=== PATIENT | female | born 1945 | race American Indian/Alaskan Native ===

== ENCOUNTER 2017-05-21 09:11 | Inpatient (IN) | payer MEDICARE ==
[2017-05-21 09:26] VITALS: BMI 26.6
[2017-05-21] MEDS ORDERED: Sodium Chloride 0.9% 500 ML IV STA (09:54)
[2017-05-21 11:34] LABS: BASO % 0.9 % (0.0-2.0); EOS % 0.6 % (0.0-4.0); HEMOGLOBIN 13.8 g/dL (11.0-16.0); LYMPH # 0.7 K/uL (1.0-4.3); LYMPH % 16.1 % (20.0-40.0); MEAN CELL VOLUME 92.5 fL (81.0-99.0); MEAN CORPUSCULAR HEMOGLOBIN 31.6 pg (27.0-31.0); MEAN CORPUSCULAR HGB CONC 34.1 g/dL (33.0-37.0); MEAN PLATELET VOLUME 8.4 fL (7.2-11.7); MONO # 0.3 K/uL (0.0-0.8); MONO % 8.2 % (0.0-10.0); NEUT # 3.1 K/uL (1.8-7.0); NEUT % 74.2 % (50.0-75.0); NRBC % 0.1 % (0.0-2.0); RBC 4.36 Mil/uL (3.80-5.20); RED CELL DISTRIBUTION WIDTH 13.6 % (11.5-14.5); WHITE BLOOD COUNT 4.2 K/uL (4.8-10.8)
--- NOTE | 2017-05-21 11:35 | RAD ---
PROCEDURE: CHEST RADIOGRAPH, 1 VIEW HISTORY: Hypoglycemia COMPARISON: None available. FINDINGS: LUNGS: The lungs are clear. There is linear atelectasis/scarring in the left mid lung. No focal consolidation. PLEURA: No pneumothorax or pleural fluid seen. CARDIOVASCULAR: Normal. OSSEOUS STRUCTURES: No significant abnormalities. VISUALIZED UPPER ABDOMEN: Normal. OTHER FINDINGS: None. IMPRESSION: No active pulmonary disease.
[2017-05-21] MEDS ORDERED: Dextrose 50% VIAL Inj (50 ml) IV ONE ×2 (11:49→13:41)
[2017-05-21 11:51] LABS: ALB/GLOB RATIO 0.8 (1.0-2.1); ALBUMIN 3.5 g/dL (3.5-5.0); CALCIUM 7.8 mg/dl (8.6-10.4)
--- NOTE | 2017-05-21 11:52 | C.PDOC ---
History Of Present Illness 71 year old female with PMHx of DM accompanied by her daughter is brought to the ED by EMS after being found unresponsive. As per daughter, patient was recently d/c homes from [facility] for pneumonia, she usually takes glucoride for her diabetes. According to the daughter she last saw the patient yesterday and spoke to her at 18:30 last night and she looked normal. This morning patient's daughter found her unresponsive and called EMS, at that time patient as foaming out of her mouth. Finger stick done by ALS was 28 patient was given D50 and repeated sugar was 303, upon arrival to the ED sugar was repeated and was 168. Patient is currently AOx3. Time Seen by Provider: 05/21/17 09:39 Chief Complaint (Nursing): High Blood Sugar History Per: EMS, Family History/Exam Limitations: clinical condition Onset/Duration Of Symptoms: Hrs Current Symptoms Are (Timing): Gone Current Diabetic Medications: Other (Glucoride) Associated Infectious Symptoms: denies: Cough, Dysuria, Urinary Urgency, Urinary Frequency, Vomiting, Diarrhea Treatment Prior To Provider Evaluation: Accucheck, D50W Given Recent travel outside of the [place]: No Additional History Per: EMS, Family Past Medical History Reviewed: Historical Data, Nursing Documentation, Vital Signs Vital Signs: Last Vital Signs Temp 97.6 F 05/21/17 09:11 Pulse 95 H 05/21/17 14:17 Resp 20 05/21/17 14:17 BP 122/86 05/21/17 14:17 Pulse Ox 100 05/21/17 14:30 - Medical History PMH: Diabetes, HTN, Chronic Kidney Disease Surgical History: Coronary Stent (x2 2000) Family History: States: Unknown Family Hx - Social History Hx Alcohol Use: No Hx Substance Use: No Review Of Systems Constitutional: Negative for: Fever, Chills Cardiovascular: Negative for: Chest Pain, Palpitations Respiratory: Negative for: Cough, Shortness of Breath Gastrointestinal: Negative for: Nausea, Vomiting, Abdominal Pain Genitourinary: Negative for: Dysuria, Hematuria Skin: Negative for: Rash Neurological: Negative for: Weakness, Numbness, Altered Mental Status, Headache , Dizziness Physical Exam - Physical Exam Appears: Non-toxic, No Acute Distress Skin: Normal Color, Warm, Dry Head: Atraumatic, Normacephalic Eye(s): bilateral: Normal Inspection Nose: No Discharge, No Deformity Oral Mucosa: Moist Neck: Normal ROM, Supple Chest: Symmetrical Cardiovascular: Rhythm Regular, No Murmur Respiratory: Normal Breath Sounds, No Rales, No Rhonchi, No Wheezing Gastrointestinal/Abdominal: Soft, No Tenderness, No Guarding, No Rebound Back: Normal Inspection Extremity: Normal ROM, No Pedal Edema, No Calf Tenderness, No Deformity, No Swelling Neurological/Psych: Oriented x3, Normal Speech, Normal Cognition Gait: Steady ED Course And Treatment - Laboratory Results Result Diagrams: 05/21/17 11:29 05/21/17 11:29 O2 Sat by Pulse Oximetry: 100 (On RA) Pulse Ox Interpretation: Normal - Radiology CXR: Viewed By Me, Read By Radiologist CXR Interpretation: Yes: Other (No active pulmonary disease.). No: No Acute Disease, Infiltrates - Other Rad CXR X-Ray: Viewed By Me, Read By Radiologist Interpretation: Accession No. : [id number]. Patient Name / ID : MILE Navarro / [id number]. Exam Date : 05/21/2017 10:03:25 ( Approved ). Study Comment : Sex / Age : F / 71Y. Creator : Angelika Jimenez MD. Dictator : Angelika Jimenez MD. Automated Manufacturing Instructor : Timber Hewer : Angelika Jimenez MD. Approver2 : Report Date : 05/21/2017 11:33:43. My Comment : . PROCEDURE: CHEST RADIOGRAPH, 1 VIEW. HISTORY: Hypoglycemia. COMPARISON: None available. FINDINGS: LUNGS: The lungs are clear. There is linear atelectasis/ scarring in the left mid lung. No focal consolidation. PLEURA: No pneumothorax or pleural fluid seen. CARDIOVASCULAR: Normal. OSSEOUS STRUCTURES: No significant abnormalities. VISUALIZED UPPER ABDOMEN: Normal. OTHER FINDINGS: None. IMPRESSION: No active pulmonary disease. - CT Scan/US Head CT Other Rad Studies (CT/US): Read By Radiologist, Radiology Report Reviewed CT/US Interpretation: Accession No. : [id number]. Patient Name / ID : MILE AKHTAR / [id number]. Exam Date : 05/21/2017 13:58:52 ( Approved ). Study Comment : Sex / Age : F / 71Y. Creator : Sharda Lima. Dictator : Yazmin Huffman MD. Automated Manufacturing Instructor : Timber Hewer : Yazmin Huffman MD. Approver2 : Report Date : 05/21/2017 14:00:15. My Comment : . This report is currently processing and HAS NOT BEEN OFFICIALLY SIGNED BY THE PHYSICIAN - ESTIMATED TIME OF APPROVAL IS 05/21/2017 14:15. PROCEDURE: CT HEAD WITHOUT CONTRAST. HISTORY: AMS. COMPARISON: None available. TECHNIQUE : Axial computed tomography images were obtained through the head/brain without intravenous contrast. Radiation dose: Total exam DLP = 915.95 mGy-cm. This CT exam was performed using one or more of the following dose reduction techniques: Automated exposure control, adjustment of the mA and/or kV according to patient size, and/or use of iterative reconstruction technique. FINDINGS: HEMORRHAGE: No intracranial hemorrhage. BRAIN: Diffuse atrophy with prominence of the ventricles and sulci noted. No mass effect or edema. Intracranial atherosclerosis. Moderate scattered Periventricular and subcortical white matter hypodensities, which are nonspecific, but often seen with chronic microvascular ischemic disease. Please note that MRI with diffusion imaging is more sensitive in the detection of acute ischemic event. VENTRICLES: No hydrocephalus. CALVARIUM: Unremarkable. PARANASAL SINUSES: Small fluid in the left maxillary sinus. Mucosal thickening of the ethmoid air cells. Small mucosal polyp/ retention cyst in the right sphenoid sinus. MASTOID AIR CELLS: Unremarkable as visualized. No inflammatory changes. OTHER FINDINGS: None. IMPRESSION: Generalized atrophy. Moderate nonspecific white matter changes. Small fluid in the left maxillary sinus. Mucosal thickening of the ethmoid air cells. Small mucosal polyp/ retention cyst in the right sphenoid sinus. Progress Note: Plan: -CXR. -Labs. -EKG. -IV fluids. -UA. Spoke with Dr. Major regarding the patient, she will be admitted under his service to Telemetry Disposition - Disposition Disposition: HOSPITALIZED Disposition Time: 14:29 Condition: SERIOUS - Clinical Impression Clinical Impression: Hypoglycemia, Acute on chronic renal insufficiency, Wheezing - PA / FIELD SALES TRAINER / Resident Statement MD/DO has reviewed & agrees with the documentation as recorded. - Scribe Statement The provider has reviewed the documentation as recorded by the Scribe Sravan Roberts All medical record entries made by the Lizbethibstephanie were at my direction and personally dictated by me. I have reviewed the chart and agree that the record accurately reflects my personal performance of the history, physical exam, medical decision making, and the department course for this patient. I have also personally directed, reviewed, and agree with the discharge instructions and disposition.
[2017-05-21] MEDS ORDERED: Dextrose 50% SYRINGE Inj (50 ml) IV STA ×2 (11:56→13:37)
[2017-05-21] MEDS ORDERED: Albuterol 0.083% Inhal Sol (2.5 mg/3 mL) UD INH STA (13:39)
--- NOTE | 2017-05-21 14:11 | CT ---
PROCEDURE: CT HEAD WITHOUT CONTRAST. HISTORY: AMS COMPARISON: None available. TECHNIQUE: Axial computed tomography images were obtained through the head/brain without intravenous contrast. Radiation dose: Total exam DLP = 915.95 mGy-cm. This CT exam was performed using one or more of the following dose reduction techniques: Automated exposure control, adjustment of the mA and/or kV according to patient size, and/or use of iterative reconstruction technique. FINDINGS: HEMORRHAGE: No intracranial hemorrhage. BRAIN: Diffuse atrophy with prominence of the ventricles and sulci noted. No mass effect or edema. Intracranial atherosclerosis. Moderate scattered Periventricular and subcortical white matter hypodensities, which are nonspecific, but often seen with chronic microvascular ischemic disease. Please note that MRI with diffusion imaging is more sensitive in the detection of acute ischemic event. VENTRICLES: No hydrocephalus. CALVARIUM: Unremarkable. PARANASAL SINUSES: Small fluid in the left maxillary sinus. Mucosal thickening of the ethmoid air cells. Small mucosal polyp/ retention cyst in the right sphenoid sinus. MASTOID AIR CELLS: Unremarkable as visualized. No inflammatory changes. OTHER FINDINGS: None. IMPRESSION: Generalized atrophy. Moderate nonspecific white matter changes. Small fluid in the left maxillary sinus. Mucosal thickening of the ethmoid air cells. Small mucosal polyp/ retention cyst in the right sphenoid sinus.
--- NOTE | 2017-05-21 14:54 | CP.PCM.PN ---
Subjective - Date & Time of Evaluation Date of Evaluation: 05/21/17 Time of Evaluation: 14:54 - Subjective Subjective: PGY-[address] Major's service: Pt is a 71 year old female, with PMHx of type two diabetes, CKD, CAD (with stent placement), CHF (Systolic), who presents to [facility] after being found in her home unresponsive. Daughter at bedside relates that patient was found by her, lying on the floor, "foaming at the mouth," diaphoretic, and incontinent of urine. Patient states she remembers taking her pills but does not know what happened after and does not remember falling. EMS was called and patient was found with blood glucose of 28. Pt was given D50 in the field and became awake, alert, and oriented. Daughter states that she last spoke with patient at 1800 last night, and patient was in normal mood/health, with no slurred speech or altered AMS. Daughter states she visits the patient daily and lays out her pills for her. Family and patient deny history of seizure disorder , stroke, previous falls, but admit one previous hypoglycemic episode last year. Daughter states patient was discharged from [facility] in [place] last Saturday for pneumonia. PMHx: type two diabetes, CKD, CAD (with stent placement: Mid LAD, Distal RCA (2016)), CHF (Systolic) PSHx: stent placement: Mid LAD, Distal RCA 07/2016 Allergies: NKA Shx: denies tobacco, alcohol, or drug use Outpt [facility] Dr. Jefferson PMD: Dr. Lopez Objective - Vital Signs/Intake and Output Vital Signs (last 24 hours): Temp Pulse Resp BP Pulse Ox 97.6 F 95 H 20 122/86 100 05/21/17 09:11 05/21/17 14:17 05/21/17 14:17 05/21/17 14:17 05/21/17 14:30 - Medications Medications: Current Medications Dextrose (Dextrose 10% In Water) 1,000 mls @ 75 mls/hr IV .[id number] ONE Stop: 05/22/17 02:19 Last Admin: 05/21/17 14:10 Dose: 75 mls/hr - Labs Labs: 05/21/17 11:29 05/21/17 11:29 - Constitutional Appears: Non-toxic, Older Than Stated Age, Chronically Ill - Head Exam Head Exam: ATRAUMATIC, NORMAL INSPECTION - Eye Exam Eye Exam: EOMI, Normal appearance. absent: Scleral icterus Pupil Exam: PERRL - ENT Exam ENT Exam: Mucous Membranes Moist - Neck Exam Neck Exam: Full ROM - Respiratory Exam Respiratory Exam: Clear to Ausculation Bilateral, NORMAL BREATHING PATTERN. absent: Rales, Rhonchi, Wheezes - Cardiovascular Exam Cardiovascular Exam: REGULAR RHYTHM, +S1, +S2 - GI/Abdominal Exam GI & Abdominal Exam: Soft, Normal Bowel Sounds. absent: Distended, Tenderness - Extremities Exam Extremities Exam: Normal Inspection. absent: Calf Tenderness, Pedal Edema, Tenderness - Back Exam Back Exam: absent: CVA tenderness (L), CVA tenderness (R) - Neurological Exam Neurological Exam: Alert, Awake, Oriented x3. absent: Altered, CN II-XII Intact Neuro motor strength exam: Left Upper Extremity: 3, Right Upper Extremity: 3, Left Lower Extremity: 3, Right Lower Extremity: 3 Additional comments: Slurred speech Aphasia Partial Gaze palsy to right light touch intact globally on all extremities - Psychiatric Exam Psychiatric exam: Normal Affect, Normal Mood - Skin Skin Exam: Dry, Normal Color, Warm Assessment and Plan - Assessment and Plan (Free Text) Plan: AMS/Syncopal episode Admit to telemetry Pt found unresponsive at home, BG 28 - AAOx3 after D50 Last known time normal 1800 on 05/20/17 CT Head (05/21/17): Generalized atrophy. Moderate nonspecific white matter changes. Small fluid in the left maxillary sinus. Mucosal thickening of the ethmoid air cells. Small mucosal polyp/ retention cyst in the right sphenoid sinus (see full report) EKG: NSR, 68 bpm, No Acute T wave/ST changes CXR (05/21/17): NAD Lactic Acid 0.9 Neuro consult: Dr. Jenkins, help appreciated Spoke to Dr. Jenkins as slurred speech, weakness, gaze palsy became worse throughout day - Pt well outside window for tPA - repeat CT Head STAT - f/u Brain MRI in AM, ECHO - f/u RPR, B12, Folate, TSH, Vitamin D Plavix 75mg PO daily Coreg 6.25mg PO BID ASA 325mg PO ONCE f/u UA Hypoglycemia Pt found unresponsive at home, BG 28 - AAOx3 after D50 in field D10 w water given in ED Stop home glyburide Insulin sliding scale coverage for now NS @ 50 cc/hr Hypoglycemia Protocol Monitor with Q4H Accucheck CHF (systolic) NO JVD, Pedal edema, Rales CXR (05/21/2017): NAD Coreg 6.25mg PO BID Hold Entresto/CHACE due to renal function HTN Hydralazine 25mg PO BID Isosorbide Dinitrate 20mg PO BID HOLD home Lasix CAD Stent placement: Mid LAD, Distal RCA (07/2016) Plavix 75mg PO Daily ASA 81mg PO Daily Coreg 6.25mg PO BID Acute on chronic renal failure Cr 3.0 on admission; up from previous admission in 2016 (1.9) Nephro consult: Dr. Enriquez, kalin appreciated - Hold Entresto/Lasix due to renal function - Light hydration NS @ 50cc/hr - f/u random sodium, microalbumin, Renal US Prophylaxis Lovenox 30mg SC Daily (renal dose) Protonix 40mg IV daily SCDs Wesley Coates PGY-2 All medical management per Dr. Major NIHSS Stroke Scale - Date/Time Evaluation Performed Date Performed: 05/21/17 Time Performed: 20:49 When Was NIHSS Performed: Baseline - How Severe is the Stroke Level of Consciousness: 0=Alert LOC to Questions: 0=Both comments correct LOC to commands: 0=Obeys both correctly Best Gaze: 1=Partial gaze palsy Visual: 0=No visual loss Facial: 0=Normal Motor Arm - Left: 0=No drift Motor Arm - Right: 1=Drift noted before 10 sec Motor Leg - Left: 1=Drift before 5 sec Motor Leg - Right: 1=Drift before 5 sec Limb Ataxia: 0=Absent Sensory: 0=Normal Best Language: 1=Mild to moderate aphasia Dysarthia: 1=Mild to moderate slurring Extinction & Inattention (Neglect): 0=Normal, no object Score: 6
[2017-05-21] MEDS ORDERED: Enoxaparin 40 mg Syringe SC SCH (16:15)
[2017-05-21] MEDS ORDERED: Glucagon Recombinant 1 mg Inj IM PRN (19:08)
[2017-05-21] MEDS ORDERED: Dextrose 50% SYRINGE Inj (50 ml) IV PRN (19:08)
[2017-05-21] MEDS ORDERED: Sodium Chloride 0.9% 1,000 ML IV SCH ×2 (19:15→20:45)
--- NOTE | 2017-05-21 21:25 | CT ---
EXAM: CT Head Without Intravenous Contrast EXAM DATE/TIME: Exam ordered 05/21/2017 7:45 PM CLINICAL HISTORY: 71 years old, female; Signs and symptoms; Speech disturbance; Slurred speech; Additional info: Worsening aphasia, slurred speech TECHNIQUE: Axial computed tomography images of the head/brain without intravenous contrast. All CT scans at this facility use one or more dose reduction techniques, viz.: automated exposure control; ma/kV adjustment per patient size (including targeted exams where dose is matched to indication; i.e. head); or iterative reconstruction technique. COMPARISON: No relevant prior studies available. FINDINGS: Brain: Low density is noted in the periventricular white matter extending into the griffin radiata and centrum semiovale bilaterally. Basal ganglia calcifications are seen bilaterally. A 6 mm area of low density is noted within the white matter of the left insula. No hemorrhage. Ventricles: Unremarkable. No ventriculomegaly. Bones/joints: Unremarkable. No acute fracture. Soft tissues: Unremarkable. Sinuses: A small air-fluid level is seen in left maxillary sinus. No no excessive thickening is seen in the right sphenoid sinus. Coastal thickening is seen of the ethmoid sinuses bilaterally. Mastoid air cells: Unremarkable as visualized. No mastoid effusion. IMPRESSION: 1. 6 mm area of low density within the left insula could represent an acute/subacute infarct. MRI with diffusion weighted imaging might be helpful. 2. Moderate microvascular ischemic change and deep white matter
[2017-05-21 23:57] LABS: CK-MB 0.81 ng/mL (0.0-3.38); TROPONIN I 0.053 ng/mL (0.00-0.120)
[2017-05-22 06:29] LABS: SQUAMOUS EPITHIAL 2 /hpf (0-5); URINE BACTERIA RARE (<OCC); URINE BILIRUBIN NEGATIVE (NEGATIVE); URINE BLOOD 1+ (NEGATIVE); URINE CLARITY Clear (Clear); URINE COLOR Yellow (YELLOW); URINE GLUCOSE (UA) 2+ mg/dL (Normal); URINE LEUKOCYTE ESTERASE NEG Leu/uL (Negative); URINE NITRATE NEGATIVE (NEGATIVE); URINE PROTEIN 3+ mg/dL (NEGATIVE); URINE UROBILINOGEN NORMAL mg/dL (0.2-1.0)
[2017-05-22 07:51] LABS: RBC 3.68 Mil/uL (3.80-5.20)
[2017-05-22 07:52] LABS: MEAN CELL VOLUME 93.9 fL (81.0-99.0); MEAN CORPUSCULAR HEMOGLOBIN 31.5 pg (27.0-31.0); MEAN CORPUSCULAR HGB CONC 33.5 g/dL (33.0-37.0); MEAN PLATELET VOLUME 8.9 fL (7.2-11.7); RED CELL DISTRIBUTION WIDTH 13.6 % (11.5-14.5)
[2017-05-22 07:53] LABS: HEMOGLOBIN 11.6 g/dL (11.0-16.0)
[2017-05-22 08:25] LABS: ALB/GLOB RATIO 0.8 (1.0-2.1); CALCIUM 7.4 mg/dl (8.6-10.4)
[2017-05-22 08:59] LABS: FOLATE 9.8 ng/mL
[2017-05-22] MEDS: Enoxaparin 30 mg Syringe SC SCH (09:10)
--- NOTE | 2017-05-22 09:12 | US ---
PROCEDURE: Ultrasound of the Kidneys HISTORY: JAYME COMPARISON: None available. TECHNIQUE: Grayscale imaging was performed. FINDINGS: RIGHT KIDNEY: Measures: 8.7 cm. Normal in size, contour with diffuse increased cortical echogenicity. No stone, solid mass lesion or hydronephrosis visualized. LEFT KIDNEY: Measures: 8.3 cm. Normal in size, contour with diffuse increased cortical echogenicity. No stone, solid mass lesion or hydronephrosis visualized. OTHER FINDINGS: None. IMPRESSION: Findings are consistent with chronic renal parenchymal disease.
[2017-05-22] MEDS ORDERED: Ergocalciferol 50,000 Intl Units Cap PO SCH (09:15)
[2017-05-22] MEDS ORDERED: Sacubitril/Valsartan 24-26mg Tab PO SCH (10:00)
[2017-05-22 11:05] LABS: CK-MB 0.79 ng/mL (0.0-3.38); TROPONIN I 0.042 ng/mL (0.00-0.120)
--- NOTE | 2017-05-22 11:06 | CON ---
DATE: NEUROLOGY CONSULTATION CHIEF COMPLAINT: Altered mental status. HISTORY OF PRESENT ILLNESS: This is a 71-year-old woman with past medical history of type 2 diabetes, chronic kidney disease, CAD status post stent, CHF, who presented to the hospital after she was found at home unresponsive, was diaphoretic, was lying on the floor, foam in the mouth incontinence of urine, and found to have blood sugar per EMS of 28, when she was given D50 in the field and became more alert, and came to the hospital for further evaluation. During her hospital admission, she was following commands, and all of a sudden, she started to have some slurred speech and was slightly altered and found to have generalized weakness on the right when compared to the left. She had a repeat CAT scan, which showed a hypodensity in the left insula representing the infarct. Currently, this morning, she is following commands mild right pronator drift; otherwise, she has no slurred speech currently. She is moving all extremities. She has features of diabetic neuropathy on examination. Her MRI of the brain today's will be pending. She has a low vitamin D level of less than 12.8. She is following commands. PAST MEDICAL HISTORY: History of type 2 diabetes mellitus, chronic kidney disease, CAD with stent placement in the mid LAD and distal RCA in July 2016; CHF, systolic. PAST SURGICAL HISTORY: Stent placement. ALLERGIES: NO KNOWN DRUG ALLERGIES. SOCIAL HISTORY: No illicit drug use, smoking or EtOH abuse. FAMILY HISTORY: Noncontributory. REVIEW OF SYSTEMS: A 14-point review of systems negative except in the HPI. MEDICATIONS: Reviewed by nurse reconciliation sheet. PHYSICAL EXAMINATION VITAL SIGNS: Temperature 98.6, pulse rate 82, blood pressure 129/76, respiratory rate of 18. GENERAL: The patient is sitting up in bed, in no acute distress. HEENT: Head is atraumatic and normocephalic. PERRLA. Extraocular muscles are intact. NECK: Supple. No JVD. No adenopathy noted. LUNGS: Clear to auscultation. No adventitious sounds. HEART: S1 and S2. Normal rate and rhythm. No murmurs, rubs, or gallops. ABDOMEN: Soft, nontender, nondistended. Bowel sounds present. EXTREMITIES: No clubbing. No cyanosis. Peripheral pulses 2+ felt bilaterally. NEUROLOGIC: The patient is alert and oriented to person, place, month and year. Recall after 5 minutes is 0/3. Poor attention span. Slow thought process. Cranial nerves II through XII are intact. Motor exam: Moves all extremities equally, except for mild slight pronator drift on the right upper extremity; otherwise, strength is generally 5-/5 throughout. Toes are upgoing bilaterally. Sensory exam: Decreased light touch and pinprick up to the calves bilaterally. Decreased vibration of the toes. DTRs are 2+ throughout and 1 at both knees and ankles. Coordination, [id number] intact. LABORATORY DATA: Sodium 131, potassium 4.3, chloride 103, carbon dioxide of 21, BUN of 51, creatinine 2.8. Random glucose of 149. ASSESSMENT AND PLAN: This is a 71-year-old woman with history of type 2 diabetes mellitus, chronic kidney disease, coronary artery disease status post stent, and congestive heart failure, who presented with altered mental status, found on the floor unresponsive with some incontinence of urine and foaming of the mouth, found to have blood sugar of 28, was hypoglycemic, given amp of D50 and became more alert and was brought to the hospital. During her hospital admission, she was doing fine until she had some slurred speech yesterday evening with some gaze palsy as well as generalized weakness. Her repeat CAT scan showed an infarct in the left insula, acute to subacute. At this time, her initial altered mental status was secondary to hypoglycemic-induced seizure which is a provoked seizure; therefore, we will not give any antiepileptic drugs; then followed by new onset of altered mental status with slurred speech, which is likely secondary to an acute infarction in the left insula causing dysarthria and slurred speech. Currently, she is doing well. She is more alert and has no severe focal deficits except for some mild pronator drift in the right upper extremity and some evidence of peripheral neuropathy from underlying diabetes. RECOMMENDATIONS: At this time, we recommend: 1. Aspirin 81, Plavix 75 mg and atorvastatin 80 mg p.o. daily for stroke prevention. 2. Avoid hypoglycemic events, keep her blood sugars between 140 to 180, and get a diabetic diet. 3. Get MRI of the brain to access for any acute infarction given that the CAT scan shows hypodensity in the left insula representing infarction. 4. Keep blood pressures between 130 to 140 systolic and diastolic 70 to 80. 5. Get an echocardiogram. 6. Carotid Doppler. 7. Give vitamin D 4000 International Units p.o. daily since her vitamin D is less than 12.8. 8. PT/OT and likely we will recommend subacute rehab. Thank you for this consult. Ismael Jenkins MD
--- NOTE | 2017-05-22 11:42 | MRI ---
PROCEDURE: MRI BRAIN WITHOUT CONTRAST HISTORY: slurred speech, AMS, aphasia, weakness COMPARISON: Head CT without contrast 05/21/2017. TECHNIQUE: Multiplanar, multisequence MR images of the brain were obtained without intravenous contrast enhancement. FINDINGS: HEMORRHAGE: None DWI: Subtle restricted diffusion is suggested in the inferior lencho, particularly anteriorly which is likely lluvia med in with chronic microangiopathy. The element of long TR signal in the lencho appears somewhat ionic context with fat in the cerebral white matter in the combination of these findings may indicate central pontine myelinolysis. Further clinical correlation is recommended as this is not definite. For diagnosis consists of potential pontine brain infarction though this is not favored. Neoplasm is even less favored but is not completely excluded. Consider follow-up MRI with gadolinium for additional characterization of the brain midbrain. . BRAIN PARENCHYMA: Good corticomedullary differentiation is seen. Reiterated diffuse cerebral atrophy and chronic microangiopathy. Abnormal signal in the lencho as discussed above in the diffusion-weighted imaging section. No suspicious extra-axial fluid collection is identified and the midline brain anatomy appears grossly nonfocal as imaged. VENTRICLES: Unremarkable. No hydrocephalus. CRANIUM: Unremarkable. ORBITS: Grossly unremarkable. PARANASAL SINUSES/MASTOIDS: Limited sinusitis is appreciated at the left maxillary and within multiple ethmoid sinuses. Small cysts or polyps are at seen in the bilateral sphenoid sinuses. VASCULAR SYSTEM: Skull base flow voids intact. OTHER FINDINGS: None. IMPRESSION: Potential central pontine bilateral lysis. Please see differential diagnosis above. Follow-up MRI with contrast is recommended for additional characterization of the lencho and in particular. Age-related neuro degenerative changes are reiterated, likely at least in part including the lencho.
--- NOTE | 2017-05-22 15:58 | CP.PCM.PN ---
Subjective - Date & Time of Evaluation Date of Evaluation: 05/22/17 Time of Evaluation: 07:00 - Subjective Subjective: Medicine progress note for Dr. Major: Patient was seen and examined at bedside this morning. Patient was awake and oriented to herself but did not know the month or the year. She denied pain, shortness of breath or chest pain. Patient stated she was able to eat without nausea or vomiting. She also reports a bowel movement yesterday. No new complaints today. Objective - Vital Signs/Intake and Output Vital Signs (last 24 hours): Temp Pulse Resp BP Pulse Ox 98.6 F 82 18 129/76 100 05/22/17 07:30 05/22/17 07:30 05/22/17 07:30 05/22/17 07:30 05/22/17 07:30 - Medications Medications: Current Medications Aspirin (Aspirin Chewable) 81 mg PO DAILY [facility] [place] Last Admin: 05/22/17 10:02 Dose: 81 mg Carvedilol (Coreg) 6.25 mg PO BID [facility] Last Admin: 05/22/17 09:11 Dose: 6.25 mg Clopidogrel Bisulfate (Plavix) 75 mg PO DAILY [facility] Last Admin: 05/22/17 09:10 Dose: 75 mg Dextrose (Dextrose 50% Inj) 0 ml IV STAT PRN; Protocol PRN Reason: Hypoglycemia Protocol Dextrose (Glutose 15) 0 gm PO ONCE PRN; Protocol PRN Reason: Hypoglycemia Protocol Enoxaparin Sodium (Lovenox) 30 mg SC DAILY [facility] [place] Last Admin: 05/22/17 09:10 Dose: 30 mg Ergocalciferol (Drisdol 50,000 Intl Units Cap) 1 cap PO Q7D [facility] [place] Last Admin: 05/22/17 10:02 Dose: 1 cap Glucagon (Glucagen Diagnostic Kit) 0 mg IM STAT PRN; Protocol PRN Reason: Hypoglycemia Protocol Hydralazine HCl (Apresoline) 25 mg PO BID [facility] [place] Last Admin: 05/22/17 09:11 Dose: 25 mg Dextrose (Dextrose 5% In Water 1000 Ml) 1,000 mls @ 0 mls/hr IV .Q0M PRN; Protocol; Per Protocol PRN Reason: Hypoglycemia Protocol Sodium Chloride (Sodium Chloride 0.9%) 1,000 mls @ 75 mls/hr IV .[id number] [facility] [place] Last Admin: 05/21/17 19:40 Dose: 75 mls/hr Sodium Chloride (Sodium Chloride 0.9%) 1,000 mls @ 50 mls/hr IV .Q20H [facility] [place] Last Admin: 05/21/17 21:05 Dose: 50 mls/hr Isosorbide Dinitrate (Isordil) 20 mg PO BID [facility] Last Admin: 05/22/17 09:11 Dose: 20 mg Rosuvastatin Calcium (Crestor) 10 mg PO HS [facility] - Labs Labs: 05/22/17 07:15 05/22/17 07:15 - Constitutional Appears: Non-toxic, No Acute Distress - Head Exam Head Exam: ATRAUMATIC, NORMAL INSPECTION - Eye Exam Eye Exam: EOMI, PERRL Pupil Exam: NORMAL ACCOMODATION - ENT Exam ENT Exam: Mucous Membranes Moist - Respiratory Exam Respiratory Exam: Clear to Ausculation Bilateral, NORMAL BREATHING PATTERN. absent: Respiratory Distress - Cardiovascular Exam Cardiovascular Exam: REGULAR RHYTHM, +S1, +S2 - GI/Abdominal Exam GI & Abdominal Exam: Soft, Normal Bowel Sounds. absent: Distended, Firm, Guarding, Tenderness - Extremities Exam Extremities Exam: Normal Inspection - Back Exam Back Exam: NORMAL INSPECTION. absent: CVA tenderness (L), CVA tenderness (R), paraspinal tenderness - Neurological Exam Neurological Exam: Alert, Awake, CN II-XII Intact. absent: Oriented x3 Neuro motor strength exam: Left Upper Extremity: 5, Right Upper Extremity: 4, Left Lower Extremity: 5, Right Lower Extremity: 4 - Psychiatric Exam Psychiatric exam: Normal Affect, Normal Mood - Skin Skin Exam: Dry, Intact, Normal Color, Warm Assessment and Plan - Assessment and Plan (Free Text) Assessment: AMS/Syncopal episode NIHSS 3 (mild pronator drift R side, mild aphasia, mild weakness on R side) MRI - potential central pontine bilateral lysis. f/u MRI with contrast recommended, Per neurology is not pontine lysis, no hx of Sodium dysfunction (could not be done with contrast due to poor renal function) Neuro consult: Dr. Jenkins, help appreciated Spoke to Dr. Jenkins as slurred speech, weakness, gaze palsy became worse throughout day on 05/21 - Pt well outside window for tPA - f/u echo, carotid dopplers - TSH 2.28 wnl Plavix 75mg PO daily Coreg 6.25mg PO BID ASA 325mg PO ONCE Pt found unresponsive at home, BG 28 - AAOx3 after D50 Last known time normal 1800 on 05/20/17 CT Head (05/21/17): Generalized atrophy. Moderate nonspecific white matter changes. Small fluid in the left maxillary sinus. Mucosal thickening of the ethmoid air cells. Small mucosal polyp/ retention cyst in the right sphenoid sinus (see full report) EKG: NSR, 68 bpm, No Acute T wave/ST changes CXR (05/21/17): NAD Lactic Acid 0.9 Vitamin D deficiency Vit D <12.8 35172 U PO given x 1 dose on 05/21, should take weekly for 4 months Vitamin B12 deficiency B12 - 371 1000mcg of B12 given 1m x 1 dose on 05/22 Patient to take supplements SL daily Hypoglycemia Pt found unresponsive at home, BG 28 - AAOx3 after D50 in field D10 w water given in ED Stop home glyburide Insulin sliding scale coverage for now NS @ 50 cc/hr Hypoglycemia Protocol Monitor with Q4H Accucheck CHF (systolic) NO JVD, Pedal edema, Rales CXR (05/21/2017): NAD Coreg 6.25mg PO BID Hold Entresto/CHACE due to renal function SOCORRO negative x 2 HTN Hydralazine 25mg PO BID Isosorbide Dinitrate 20mg PO BID HOLD home Lasix CAD Stent placement: Mid LAD, Distal RCA (07/2016) Plavix 75mg PO Daily ASA 81mg PO Daily Coreg 6.25mg PO BID Acute on chronic renal failure Cr 3.0 on admission; up from previous admission in 2016 (1.9) Nephro consult: Dr. Enriquez, help appreciated - Hold Entresto/Lasix due to renal function - Light hydration NS @ 50cc/hr - f/u random sodium, microalbumin, Renal US Prophylaxis Lovenox 30mg SC Daily (renal dose) Protonix 40mg IV daily SCDs All medical management per Dr. Major
--- NOTE | 2017-05-22 17:01 | CP.PCM.CON ---
History of Present Illness - History of Present Illness History of Present Illness: Initial Nephrology Consultation: Assessment: Stable Hypoglycemia, hyponatremia Acute Kidney Injury (N17.9) likely due to mild pre-renal state Diabetic chronic Kidney Disease (E11.22) Hypertensive Chronic Kidney Disease (I12.9) Chronic Kidney Disease (N18.4) Stage 4 with proteinuria (R80.9) likely due to DM Anemia (D64.9), Vit D def, HTN (I12.9) CHF Vit D def Plan No acute need for renal replacement therapy at this time. Hypertension control with meds as ordered. Patient not on ACEI/ARB as on entresto which is also being held Monitor Input/Output, daily weights and renal function with basic metabolic panel d/c IVF since her oral intake okay and with CHF/recent hospitalization for it please obtain record from recent hospitalization about renal function supplement with weekly vit D had ordered urine analysis, spot protein/creatinine and albumin/creatinine ratio , renal sonogram. Check for iPTH, phosphorus level Dose meds/antibiotics for reduced GFR. Avoid fleets enema/magnesium based laxatives. Avoid nephrotoxins/NSAIDs/ iodinated contrast (unless needed emergently) Glycemic control Further work up/management as per primary team Thanks for allowing me to participate in care of your patient. Will follow patient with you. Please call if any Qs. d/w family and team Dr Aime Enriquez Office: [phone] Chief Complaint; low sugar reason for consult: JAYME HPI: Pt is a 71 F with hx of diabetes Mellitus (>20 years) without known retinopathy, hypertension (20 years), hyperlipidemia, CKD 3 (cr 1.9 in 2016) CHF recently admitted to another hospital with CHF exacerbation and fluid overload d/c home 1 week ago, now on entresto presented with complaints of low sugar and AMS. now feels better and at usual health. she is not aware about kidney issues. daughter says they were informed that kidney function not okay. Denies OTC/herbal meds or NSAIDs No recent iodinated contrast exposure. No obvious episodes of low BP. ROS: Cardiovascular: No chest pain. Pulmonary: No shortness of breath Gastrointestinal: denies abdominal pain No nausea. No vomiting. Genitourinary: No pain while urinating. Denies blood in urine. All other negative Physical Examination: General Appearance: Comfortable, in no acute respiratory distress, co-operative . Vitals reviewed and noted as below Head; Atraumatic, normocephalic ENT: no ulcers no thrush. Tongue is midline. Oropharynx: no rash or ulcers. EYES: Pupils are equal, round and reactive to light accommodation. Eye muscles and extraocular movement intact. Sclera is anicteric. Neck; supple no lymphadenopathy, no thyromegaly or bruit Lungs: Normal respiratory rate/effort. Breath sounds bilateral equal and clear Heart: Normal rate. s1s2 normal. No rub or gallop. Extremities: no edema. No varicose veins Neurological: Patient is alert, awake and oriented to person, place and time. No focal deficit. Strength bilateral appropriate and equal Skin: Warm and dry. Normal turgor. No rash. Palpitation: Normal elasticity for age Abdomen: Abdomen is soft. Bowel sounds +. There is no abdominal tenderness, no guarding/rigidity no organomegaly Psych: limited insight and normal affect/mood MSK: no joint tenderness or swelling. Digits and nails normal, no deformity : kidney or bladder not palpable Labs/imaging reviewed. Past medical history, past surgical history, family history, social history, allergy reviewed and noted as below Family hx: no hx of CKD. Rest non-contributory ua 3+ protein echogenic kidneys on sonogram Past Patient History - Past Medical History & Family History Past Medical History?: Yes - Past Social History Smoking Status: Never Smoked - CARDIAC Hx Hypertension: Yes - RENAL Hx Chronic Kidney Disease: Yes - ENDOCRINE/METABOLIC Hx Diabetes Mellitus Type 2: Yes - MUSCULOSKELETAL/RHEUMATOLOGICAL Hx Falls: Yes - PSYCHIATRIC Hx Substance Use: No - SURGICAL HISTORY Hx Surgeries: Yes Hx Coronary Stent: Yes (x2 2000) - ANESTHESIA Hx Anesthesia: Yes Hx Anesthesia Reactions: No Hx Malignant Hyperthermia: No Meds Allergies/Adverse Reactions: Allergies Allergy/AdvReac Type Severity Reaction Status Date / Time No Known Allergies Allergy Verified 04/09/16 15:10 - Medications Medications: Current Medications Aspirin (Aspirin Chewable) 81 mg PO DAILY [facility] Last Admin: 05/22/17 10:02 Dose: 81 mg Carvedilol (Coreg) 6.25 mg PO BID [facility] Last Admin: 05/22/17 09:11 Dose: 6.25 mg Clopidogrel Bisulfate (Plavix) 75 mg PO DAILY [facility] Last Admin: 05/22/17 09:10 Dose: 75 mg Dextrose (Dextrose 50% Inj) 0 ml IV STAT PRN; Protocol PRN Reason: Hypoglycemia Protocol Dextrose (Glutose 15) 0 gm PO ONCE PRN; Protocol PRN Reason: Hypoglycemia Protocol Enoxaparin Sodium (Lovenox) 30 mg SC DAILY [facility] Last Admin: 05/22/17 09:10 Dose: 30 mg Ergocalciferol (Drisdol 50,000 Intl Units Cap) 1 cap PO Q7D [facility] Last Admin: 05/22/17 10:02 Dose: 1 cap Glucagon (Glucagen Diagnostic Kit) 0 mg IM STAT PRN; Protocol PRN Reason: Hypoglycemia Protocol Hydralazine HCl (Apresoline) 25 mg PO BID [facility] Last Admin: 05/22/17 09:11 Dose: 25 mg Dextrose (Dextrose 5% In Water 1000 Ml) 1,000 mls @ 0 mls/hr IV .Q0M PRN; Protocol; Per Protocol PRN Reason: Hypoglycemia Protocol Isosorbide Dinitrate (Isordil) 20 mg PO BID [facility] Last Admin: 05/22/17 09:11 Dose: 20 mg Rosuvastatin Calcium (Crestor) 10 mg PO [facility] Results - Vital Signs Recent Vital Signs: Last Vital Signs Temp 98.6 F 05/22/17 07:30 Pulse 78 05/22/17 16:00 Resp 18 05/22/17 07:30 BP 129/76 05/22/17 07:30 Pulse Ox 100 05/22/17 07:30 - Labs Result Diagrams: 05/22/17 07:15 05/22/17 07:15 Labs: Laboratory Results - last 24 hr 05/21/17 05/21/17 05/21/17 16:50 19:50 23:29 WBC RBC Hgb Hct MCV MCH MCHC RDW Plt Count MPV Sodium Potassium Chloride Carbon Dioxide Anion Gap BUN Creatinine Est GFR ( Amer) Est GFR (Non-Af Amer) POC Glucose (mg/dL) 308 H 232 H Random Glucose Calcium Total Bilirubin AST ALT Alkaline Phosphatase Total Creatine Kinase 91 CK-MB (Mass) 0.81 Troponin I 0.0530 Total Protein Albumin Globulin Albumin/Globulin Ratio Vitamin B12 25-OH Vitamin D Total Folate Free T4 TSH 3rd Generation Urine Color Urine Clarity Urine pH Ur Specific [place] Urine Protein Urine Glucose (UA) Urine Ketones Urine Blood Urine Nitrate Urine Bilirubin Urine Urobilinogen Ur Leukocyte Esterase Urine WBC (Auto) Urine RBC (Auto) Ur Squamous Epith Cells Urine Bacteria Hyaline Casts U Random Total Protein Ur Random Sodium Urine Microalbumin 05/22/17 05/22/17 05/22/17 02:33 06:22 06:22 WBC RBC Hgb Hct MCV MCH MCHC RDW Plt Count MPV Sodium Potassium Chloride Carbon Dioxide Anion Gap BUN Creatinine Est GFR ( Amer) Est GFR (Non-Af Amer) POC Glucose (mg/dL) 83 Random Glucose Calcium Total Bilirubin AST ALT Alkaline Phosphatase Total Creatine Kinase CK-MB (Mass) Troponin I Total Protein Albumin Globulin Albumin/Globulin Ratio Vitamin B12 25-OH Vitamin D Total Folate Free T4 TSH 3rd Generation Urine Color Yellow Urine Clarity Clear Urine pH 6.0 Ur Specific [place] 1.017 Urine Protein 3+ H Urine Glucose (UA) 2+ H Urine Ketones Negative Urine Blood 1+ H Urine Nitrate Negative Urine Bilirubin Negative Urine Urobilinogen Normal Ur Leukocyte Esterase Neg Urine WBC (Auto) 2 Urine RBC (Auto) 5 H Ur Squamous Epith Cells 2 Urine Bacteria Rare Hyaline Casts 3-5 H U Random Total Protein Ur Random Sodium Urine Microalbumin > 950.0 H 05/22/17 05/22/17 05/22/17 06:25 07:15 07:15 WBC 5.0 RBC 3.68 L Hgb 11.6 D Hct 34.6 MCV 93.9 MCH 31.5 H MCHC 33.5 RDW 13.6 Plt Count 323 MPV 8.9 Sodium 131 L Potassium 4.3 Chloride 103 Carbon Dioxide 21 L Anion Gap 11 BUN 51 H Creatinine 2.8 H Est GFR ( Amer) 20 Est GFR (Non-Af Amer) 17 POC Glucose (mg/dL) 150 H Random Glucose 149 H Calcium 7.4 L Total Bilirubin 0.5 AST 43 H D ALT 22 Alkaline Phosphatase 131 H Total Creatine Kinase 72 CK-MB (Mass) 0.79 Troponin I 0.0420 Total Protein 6.6 Albumin 3.0 L Globulin 3.7 Albumin/Globulin Ratio 0.8 L Vitamin B12 371 25-OH Vitamin D Total Folate 9.8 Free T4 TSH 3rd Generation 2.28 Urine Color Urine Clarity Urine pH Ur Specific [place] Urine Protein Urine Glucose (UA) Urine Ketones Urine Blood Urine Nitrate Urine Bilirubin Urine Urobilinogen Ur Leukocyte Esterase Urine WBC (Auto) Urine RBC (Auto) Ur Squamous Epith Cells Urine Bacteria Hyaline Casts U Random Total Protein Ur Random Sodium Urine Microalbumin 05/22/17 05/22/17 05/22/17 07:15 07:15 11:58 WBC RBC Hgb Hct MCV MCH MCHC RDW Plt Count MPV Sodium Potassium Chloride Carbon Dioxide Anion Gap BUN Creatinine Est GFR ( Amer) Est GFR (Non-Af Amer) POC Glucose (mg/dL) Random Glucose Calcium Total Bilirubin AST ALT Alkaline Phosphatase Total Creatine Kinase CK-MB (Mass) Troponin I Total Protein Albumin Globulin Albumin/Globulin Ratio Vitamin B12 25-OH Vitamin D Total < 12.8 L Folate Free T4 1.25 TSH 3rd Generation Urine Color Urine Clarity Urine pH Ur Specific [place] Urine Protein Urine Glucose (UA) Urine Ketones Urine Blood Urine Nitrate Urine Bilirubin Urine Urobilinogen Ur Leukocyte Esterase Urine WBC (Auto) Urine RBC (Auto) Ur Squamous Epith Cells Urine Bacteria Hyaline Casts U Random Total Protein Ur Random Sodium 76 Urine Microalbumin 05/22/17 13:20 WBC RBC Hgb Hct MCV MCH MCHC RDW Plt Count MPV Sodium Potassium Chloride Carbon Dioxide Anion Gap BUN Creatinine Est GFR ( Amer) Est GFR (Non-Af Amer) POC Glucose (mg/dL) Random Glucose Calcium Total Bilirubin AST ALT Alkaline Phosphatase Total Creatine Kinase CK-MB (Mass) Troponin I Total Protein Albumin Globulin Albumin/Globulin Ratio Vitamin B12 25-OH Vitamin D Total Folate Free T4 TSH 3rd Generation Urine Color Urine Clarity Urine pH Ur Specific [place] Urine Protein Urine Glucose (UA) Urine Ketones Urine Blood Urine Nitrate Urine Bilirubin Urine Urobilinogen Ur Leukocyte Esterase Urine WBC (Auto) Urine RBC (Auto) Ur Squamous Epith Cells Urine Bacteria Hyaline Casts U Random Total Protein 956.0 H Ur Random Sodium Urine Microalbumin
[2017-05-22 17:02] VITALS: RESP 20
[2017-05-23 07:23] LABS: BASO # 0.1 K/uL (0.0-0.2); BASO % 1.3 % (0.0-2.0); EOS # 0.2 K/uL (0.0-0.7); EOS % 3.7 % (0.0-4.0); HEMOGLOBIN 11.1 g/dL (11.0-16.0); LYMPH # 1.2 K/uL (1.0-4.3); LYMPH % 23.5 % (20.0-40.0); MEAN CELL VOLUME 93.7 fL (81.0-99.0); MEAN CORPUSCULAR HEMOGLOBIN 31.2 pg (27.0-31.0); MEAN CORPUSCULAR HGB CONC 33.3 g/dL (33.0-37.0); MEAN PLATELET VOLUME 8.8 fL (7.2-11.7); MONO # 0.4 K/uL (0.0-0.8); NEUT # 3.1 K/uL (1.8-7.0); NEUT % 63.5 % (50.0-75.0); RBC 3.55 Mil/uL (3.80-5.20); RED CELL DISTRIBUTION WIDTH 13.6 % (11.5-14.5); WHITE BLOOD COUNT 4.9 K/uL (4.8-10.8)
[2017-05-23 07:44] LABS: ALB/GLOB RATIO 0.8 (1.0-2.1); CALCIUM 7.8 mg/dl (8.6-10.4); MAGNESIUM 1.4 mg/dL (1.6-2.3)
--- NOTE | 2017-05-23 08:18 | HP ---
HISTORY OF PRESENT ILLNESS: Ms. Nascimento is a 71-year-old female who was complaining of hypoglycemia, chronic renal failure. Patient came to the ER, advised admission. PHYSICAL EXAMINATION: GENERAL: The patient is awake, alert, oriented. VITAL SIGNS: Temperature is 98, pulse is 90. HEENT: Within normal limits. NECK: Supple. CHEST: Symmetrical. HEART: Regular. ABDOMEN: Soft. EXTREMITIES: No edema. ASSESSMENT AND PLAN: The patient suffers from hypoglycemia and renal failure. Patient to get bedrest, supportive care. Taz Major MD
[2017-05-23] MEDS: Enoxaparin 30 mg Syringe SC SCH (09:18)
[2017-05-23] MEDS ORDERED: Influenza Vaccine 60 mcg/0.5 mL SYR (4YR UP) IM ONE (10:00)
--- NOTE | 2017-05-23 11:56 | CARD ---
APPROVED REPORT EKG Measurement Heart [id number] <Conclusion> Normal sinus rhythm Left axis deviation Minimal voltage criteria for LVH, may be normal variant Nonspecific T wave abnormality Prolonged QT Abnormal ECG
--- NOTE | 2017-05-23 12:16 | CARD ---
APPROVED REPORT EKG Measurement Heart [id number] [place] [id number] [id number] <Conclusion> Normal sinus rhythm Left axis deviation Septal infarct, age undetermined Abnormal ECG
[2017-05-23] MEDS: Magnesium Oxide 400 mg Tab UD PO SCH ×2 (13:26→18:17)
--- NOTE | 2017-05-23 13:35 | CP.PCM.PN ---
Subjective - Date & Time of Evaluation Date of Evaluation: 05/23/17 Time of Evaluation: 07:00 - Subjective Subjective: Medicine progress note for Dr. Major: Patient was seen and examined at bedside this morning. Patient was awake and oriented x 3 today. She denied chest pain, shortness of breath, numbness/ tingling. She was able to eat her breakfast and has been tolerating meals without nausea of vomiting. Otherwise doing well. Today she was out of bed and sitting in the chair. She states she has been walking with physical therapy. No new complaints today. Objective - Vital Signs/Intake and Output Vital Signs (last 24 hours): Temp Pulse Resp BP Pulse Ox 98.1 F 802 H 20 134/72 99 05/23/17 09:13 05/23/17 09:13 05/23/17 09:13 05/23/17 09:13 05/23/17 09:13 Intake and Output: 05/23/17 05/23/17 06:59 18:59 Intake Total 520 Output Total 400 Balance 120 - Medications Medications: Current Medications Aspirin (Aspirin Chewable) 81 mg PO DAILY [facility] Last Admin: 05/23/17 09:17 Dose: 81 mg Carvedilol (Coreg) 6.25 mg PO BID [facility] Last Admin: 05/23/17 09:17 Dose: 6.25 mg Clopidogrel Bisulfate (Plavix) 75 mg PO DAILY [facility] Last Admin: 05/23/17 09:17 Dose: 75 mg Dextrose (Dextrose 50% Inj) 0 ml IV STAT PRN; Protocol PRN Reason: Hypoglycemia Protocol Dextrose (Glutose 15) 0 gm PO ONCE PRN; Protocol PRN Reason: Hypoglycemia Protocol Enoxaparin Sodium (Lovenox) 30 mg SC DAILY [facility] Last Admin: 05/23/17 09:18 Dose: 30 mg Ergocalciferol (Drisdol 50,000 Intl Units Cap) 1 cap PO Q7D [facility] Last Admin: 05/22/17 10:02 Dose: 1 cap Glucagon (Glucagen Diagnostic Kit) 0 mg IM STAT PRN; Protocol PRN Reason: Hypoglycemia Protocol Hydralazine HCl (Apresoline) 25 mg PO BID [facility] Last Admin: 05/23/17 09:17 Dose: 25 mg Dextrose (Dextrose 5% In Water 1000 Ml) 1,000 mls @ 0 mls/hr IV .Q0M PRN; Protocol; Per Protocol PRN Reason: Hypoglycemia Protocol Isosorbide Dinitrate (Isordil) 20 mg PO BID [facility] Last Admin: 05/23/17 09:17 Dose: 20 mg Magnesium Oxide (Mag-Ox) 400 mg PO BID [facility] Last Admin: 05/23/17 13:26 Dose: 400 mg Rosuvastatin Calcium (Crestor) 10 mg PO HS [facility] Last Admin: 05/22/17 21:33 Dose: 10 mg Sodium Bicarbonate (Sodium Bicarbonate Tab) 650 mg PO BID [facility] Last Admin: 05/23/17 13:27 Dose: 650 mg - Labs Labs: 05/23/17 07:10 05/23/17 07:10 - Constitutional Appears: Non-toxic, No Acute Distress - Head Exam Head Exam: ATRAUMATIC, NORMAL INSPECTION - Eye Exam Eye Exam: EOMI - ENT Exam ENT Exam: Mucous Membranes Moist - Respiratory Exam Respiratory Exam: Clear to Ausculation Bilateral, NORMAL BREATHING PATTERN. absent: Respiratory Distress - Cardiovascular Exam Cardiovascular Exam: REGULAR RHYTHM, +S1, +S2 - GI/Abdominal Exam GI & Abdominal Exam: Soft, Normal Bowel Sounds. absent: Distended, Firm, Guarding, Tenderness - Extremities Exam Extremities Exam: Normal Inspection - Back Exam Back Exam: NORMAL INSPECTION. absent: CVA tenderness (L), CVA tenderness (R), paraspinal tenderness - Neurological Exam Neurological Exam: Alert, Awake, CN II-XII Intact, Normal Gait, Oriented x3 Neuro motor strength exam: Left Upper Extremity: 5, Right Upper Extremity: 5, Left Lower Extremity: 5, Right Lower Extremity: 5 - Psychiatric Exam Psychiatric exam: Normal Affect, Normal Mood - Skin Skin Exam: Dry, Intact, Normal Color, Warm Assessment and Plan - Assessment and Plan (Free Text) Assessment: AMS/Syncopal episode Patient is awake and oriented today. Seems back to her baseline but will speak with her daughters. MRI - potential central pontine bilateral lysis. f/u MRI with contrast recommended, Per neurology is not pontine lysis, no hx of Sodium dysfunction (could not be done with contrast due to poor renal function) Neuro consult: Dr. Jenkins, help appreciated Spoke to Dr. Jenkins as slurred speech, weakness, gaze palsy became worse throughout day on 05/21 - Pt well outside window for tPA - f/u echo, carotid dopplers, will need to wait for these results before dc - TSH 2.28 wnl Plavix 75mg PO daily Coreg 6.25mg PO BID ASA 325mg PO ONCE Pt found unresponsive at home, BG 28 - AAOx3 after D50 Last known time normal 1800 on 05/20/17 CT Head (05/21/17): Generalized atrophy. Moderate nonspecific white matter changes. Small fluid in the left maxillary sinus. Mucosal thickening of the ethmoid air cells. Small mucosal polyp/ retention cyst in the right sphenoid sinus (see full report) EKG: NSR, 68 bpm, No Acute T wave/ST changes CXR (05/21/17): NAD Lactic Acid 0.9 Vitamin D deficiency Vit D <12.8 91517 U PO given x 1 dose on 05/21, should take weekly for 4 months Vitamin B12 deficiency B12 - 371 1000mcg of B12 given 1m x 1 dose on 05/22 Patient to take supplements SL daily Hypoglycemia Pt found unresponsive at home, BG 28 - AAOx3 after D50 in field D10 w water given in ED Stop home glyburide Insulin sliding scale coverage for now NS @ 50 cc/hr Hypoglycemia Protocol Monitor with Q4H Accucheck CHF (systolic) NO JVD, Pedal edema, Rales CXR (05/21/2017): NAD Coreg 6.25mg PO BID Hold Entresto/CHACE due to renal function SOCORRO negative x 2 HTN Controlled Hydralazine 25mg PO BID Isosorbide Dinitrate 20mg PO BID HOLD home Lasix CAD Stent placement: Mid LAD, Distal RCA (07/2016) Plavix 75mg PO Daily ASA 81mg PO Daily Coreg 6.25mg PO BID Acute on chronic renal failure Cr 2.6 day, mild improvement Cr 3.0 on admission; up from previous admission in 2016 (1.9) Nephro consult: Dr. Enriquez, help appreciated: Dose meds/antibiotics for reduced GFR. Avoid fleets enema/magnesium based laxatives. Avoid nephrotoxins/NSAIDs/ iodinated contrast (unless needed emergently) - Hold Entresto/Lasix due to renal function Ua sodium 76 microalbumin >950 - needs CHACE/arb but can't give at this time due to poor renal function Urine total protein 956 Renal US - chronic renal parenchymal disease Prophylaxis Lovenox 30mg SC Daily (renal dose) Protonix 40mg IV daily SCDs Disposition: Will likely DC tomorrow pending neurology clearance and echo/ carotid doppler reports All medical management per Dr. Major
--- NOTE | 2017-05-23 13:46 | CARD ---
APPROVED REPORT EXAM: Two-dimensional and M-mode echocardiogram with Doppler and color Doppler. Other Information Quality : GoodRhythm : INDICATION Syncope Congestive Heart Failure 2D DIMENSIONS IVSd1.0 (0.7-1.1cm)LVDd4.4 (3.9-5.9cm) PWd1.1 (0.7-1.1cm)LVDs3.4 (2.5-4.0cm) FS (%) 22.8 %LVEF (%)46.0 (>50%) M-Mode DIMENSIONS Left Atrium (MM)3.58 (2.5-4.0cm)Aortic Root3.04 (2.2-3.7cm) Aortic Cusp Exc.1.78 (1.5-2.0cm) Aortic Valve AI P 1/2 [id number] Mitral Valve MV E Hoacvjal503.6cm/sMV A Cyfjbjkm432.4cm/sE/A ratio1.0 TDI E/Lateral E'0.0E/Medial E'0.0 Tricuspid Valve TR Peak Mvwhvguq483yh/sTR Peak Gr.[id number] LEFT VENTRICLE The left ventricle is normal size. There is normal left ventricular wall thickness. The Ejection Fraction is 40-45%. Significant regional wall motion abnormalities noted. [place], distal suki-septal and anterior wall are moderately hypokinetic LV filling pressures are increased No left ventricle thrombus noted on this study. There is no ventricular septal defect visualized. There is no left ventricular aneurysm. There is no mass noted in the left ventricle. RIGHT VENTRICLE The right ventricle is normal size. There is normal right ventricular wall thickness. The right ventricular systolic function is normal. ATRIA The left atrium size is normal. The right atrium size is normal. The interatrial septum is intact with no evidence for an atrial septal defect. AORTIC VALVE The aortic valve is normal in structure and function. There is mild aortic regurgitation. There is no aortic valvular stenosis. There is no aortic valvular vegetation. MITRAL VALVE The mitral valve is normal in structure and function. There is no evidence of mitral valve prolapse. There is no mitral valve stenosis. Mitral regurgitation is mild. Regurge. volume 20 ml and EOR 0.1 cm2 TRICUSPID VALVE The tricuspid valve is normal in structure and function. There is moderate tricuspid regurgitation. Right ventricular systolic pressure is estimated at 40-50 mmHg. There is no tricuspid valve prolapse or vegetation. There is no tricuspid valve stenosis. PULMONIC VALVE The pulmonary valve is normal in structure and function. There is no pulmonic valvular regurgitation. There is no pulmonic valvular stenosis. GREAT VESSELS The aortic root is normal in size. The ascending aorta is normal in size. The pulmonary artery is normal. The IVC is normal in size and collapses >50% with inspiration. PERICARDIAL EFFUSION The pericardium appears normal. There is no pleural effusion. <Conclusion> The Ejection Fraction is 40-45%. Significant regional wall motion abnormalities noted. [place], distal suki-septal and anterior wall are moderately hypokinetic LV filling pressures are increased There is mild aortic regurgitation. Mitral regurgitation is mild. Regurge. volume 20 ml and EOR 0.1 cm2 There is moderate tricuspid regurgitation. Right ventricular systolic pressure is estimated at 40-50 mmHg.
--- NOTE | 2017-05-23 14:47 | VASCLAB ---
PROCEDURE: HISTORY: cva COMPARISON: None available. TECHNIQUE: Grayscale and duplex Doppler evaluation of the cervical carotid and vertebral arteries were performed. The common carotid, carotid bifurcations and cervical Internal Carotid Artery (ICA) and proximal External Carotid Artery (ECA) were evaluated. The vertebral arteries were evaluated for gross patency and flow direction. Report prepared by Cma Dodd, BS, RVT FINDINGS: RIGHT CAROTID ARTERIES: 1. Common Carotid Artery: No significant focal plaque formation of the right common carotid artery. Maximum Peak Systolic velocity: 62 cm/sec: End-diastolic velocity 8 cm/sec. 2. Carotid Bifurcation: Calcific plaque formation. Maximum Peak Systolic velocity: 62 cm/sec: End-diastolic velocity 11 cm/sec. 3. Internal Carotid Artery: Minimal plaque formation of the right proximal ICA which does not result in hemodynamically significant stenosis. Plaque description: Calcific 3.1. Proximal Segment: Peak systolic velocity 63 cm/sec: End-diastolic velocity 17 cm/sec - % stenosis 0-15% 3.2. Middle Segment: Peak systolic velocity 45 cm/sec: End-diastolic velocity 11 cm/sec - % stenosis 0-15% 3.3. Distal Segment: Peak systolic velocity 40 cm/sec: End-diastolic velocity 10 cm/sec - % stenosis 0-15% 4. External Carotid Artery: No significant focal plaque formation. Peak systolic velocity 50 cm/sec 5. ICA/CCA Ratio: 1.0 LEFT CAROTID ARTERIES: 1. Common Carotid Artery: No significant focal plaque formation of the left common carotid artery. Maximum Peak Systolic velocity: 75 cm/sec: End-diastolic velocity 12 cm/sec. 2. Carotid Bifurcation: plaque formation. Maximum Peak Systolic velocity: 56 cm/sec: End-diastolic velocity 8 cm/sec. 3. Internal Carotid Artery: Plaque description: 3.1. Proximal Segment: Peak systolic velocity 66 cm/sec: End-diastolic velocity 12 cm/sec - % stenosis 0-15% 3.2. Middle Segment: Peak systolic velocity 46 cm/sec: End-diastolic velocity 13 cm/sec - % stenosis 0-15% 3.3. Distal Segment: Peak systolic velocity 37 cm/sec: End-diastolic velocity 10 cm/sec - % stenosis 0-15% 4. External Carotid Artery: No significant focal plaque formation. Peak systolic velocity 68 cm/sec 5. ICA/CCA Ratio: 0.9 VERTEBRAL ARTERIES: 1. Right Vertebral Artery: The right vertebral artery flow direction is antegrade. 2. Left Vertebral Artery: The left vertebral artery flow direction is antegrade. OTHER FINDINGS: 1. Right Brachial Blood pressure: 116 mmHg. 2. Left Brachial Blood pressure: 110 mmHg. IMPRESSION: RIGHT: Duplex scan does not suggest hemodynamically significant stenosis of the right extracranial carotid arteries. LEFT: Duplex scan does not suggest hemodynamically significant stenosis of the left extracranial carotid arteries.
--- NOTE | 2017-05-23 15:47 | CP.PCM.PN ---
Subjective - Date & Time of Evaluation Date of Evaluation: 05/23/17 Time of Evaluation: 11:00 - Subjective Subjective: Follow up Nephrology Consultation: Assessment: Stable Hypoglycemia, hyponatremia Acute Kidney Injury (N17.9) likely due to mild pre-renal state Diabetic chronic Kidney Disease (E11.22) Hypertensive Chronic Kidney Disease (I12.9) Chronic Kidney Disease (N18.4) Stage 4 with proteinuria (R80.9) likely due to DM Anemia (D64.9), Vit D def, HTN (I12.9) CHF Vit D def acidosis and hypomag Plan No acute need for renal replacement therapy at this time. Hypertension control with meds as ordered. Patient not on ACEI/ARB as on entresto which is also being held Monitor Input/Output, daily weights and renal function with basic metabolic panel considering CHF/recent hospitalization for it, will resume her lasix please obtain record from recent hospitalization about renal function supplement with weekly vit D supplement with mag and bicarb Dose meds/antibiotics for reduced GFR. Avoid fleets enema/magnesium based laxatives. Avoid nephrotoxins/NSAIDs/ iodinated contrast (unless needed emergently) Glycemic control Further work up/management as per primary team Thanks for allowing me to participate in care of your patient. Will follow patient with you. Please call if any Qs. d/w team Dr Aime Enriquez Office: [phone] Chief Complaint; low sugar reason for consult: JAYME HPI: Pt is a 71 F with hx of diabetes Mellitus (>20 years) without known retinopathy, hypertension (20 years), hyperlipidemia, CKD 3 (cr 1.9 in 2016) CHF recently admitted to another hospital with CHF exacerbation and fluid overload d/c home 1 week ago, now on entresto presented with complaints of low sugar and AMS. now feels better and at usual health. she is not aware about kidney issues. daughter says they were informed that kidney function not okay. Denies OTC/herbal meds or NSAIDs No recent iodinated contrast exposure. No obvious episodes of low BP. ROS: Cardiovascular: No chest pain. Pulmonary: No shortness of breath Gastrointestinal: denies abdominal pain No nausea. No vomiting. Genitourinary: No pain while urinating. Denies blood in urine. All other negative Physical Examination: General Appearance: Comfortable, in no acute respiratory distress, co-operative . Vitals reviewed and noted as below Head; Atraumatic, normocephalic ENT: no ulcers no thrush. Tongue is midline. Oropharynx: no rash or ulcers. EYES: Pupils are equal, round and reactive to light accommodation. Eye muscles and extraocular movement intact. Sclera is anicteric. Neck; supple no lymphadenopathy, no thyromegaly or bruit Lungs: Normal respiratory rate/effort. Breath sounds bilateral equal and occasional basal crackle Heart: Normal rate. s1s2 normal. No rub or gallop. Extremities: no edema. No varicose veins Neurological: Patient is alert, awake and oriented to person, place and time. No focal deficit. Strength bilateral appropriate and equal Skin: Warm and dry. Normal turgor. No rash. Palpitation: Normal elasticity for age Abdomen: Abdomen is soft. Bowel sounds +. There is no abdominal tenderness, no guarding/rigidity no organomegaly Psych: limited insight and normal affect/mood MSK: no joint tenderness or swelling. Digits and nails normal, no deformity : kidney or bladder not palpable Labs/imaging reviewed. Past medical history, past surgical history, family history, social history, allergy reviewed and noted as below Family hx: no hx of CKD. Rest non-contributory ua 3+ protein echogenic kidneys on sonogram Objective - Vital Signs/Intake and Output Vital Signs (last 24 hours): Temp Pulse Resp BP Pulse Ox 98.1 F 802 H 20 134/72 99 05/23/17 09:13 05/23/17 09:13 05/23/17 09:13 05/23/17 09:13 05/23/17 09:13 Intake and Output: 05/23/17 05/23/17 06:59 18:59 Intake Total 520 Output Total 400 Balance 120 - Medications Medications: Current Medications Aspirin (Aspirin Chewable) 81 mg PO DAILY [facility] Last Admin: 05/23/17 09:17 Dose: 81 mg Carvedilol (Coreg) 6.25 mg PO BID [facility] Last Admin: 05/23/17 09:17 Dose: 6.25 mg Clopidogrel Bisulfate (Plavix) 75 mg PO DAILY [facility] Last Admin: 05/23/17 09:17 Dose: 75 mg Dextrose (Dextrose 50% Inj) 0 ml IV STAT PRN; Protocol PRN Reason: Hypoglycemia Protocol Dextrose (Glutose 15) 0 gm PO ONCE PRN; Protocol PRN Reason: Hypoglycemia Protocol Enoxaparin Sodium (Lovenox) 30 mg SC DAILY [facility] Last Admin: 05/23/17 09:18 Dose: 30 mg Ergocalciferol (Drisdol 50,000 Intl Units Cap) 1 cap PO Q7D [facility] Last Admin: 05/22/17 10:02 Dose: 1 cap Glucagon (Glucagen Diagnostic Kit) 0 mg IM STAT PRN; Protocol PRN Reason: Hypoglycemia Protocol Hydralazine HCl (Apresoline) 25 mg PO BID [facility] Last Admin: 05/23/17 09:17 Dose: 25 mg Dextrose (Dextrose 5% In Water 1000 Ml) 1,000 mls @ 0 mls/hr IV .Q0M PRN; Protocol; Per Protocol PRN Reason: Hypoglycemia Protocol Isosorbide Dinitrate (Isordil) 20 mg PO BID [facility] Last Admin: 05/23/17 09:17 Dose: 20 mg Magnesium Oxide (Mag-Ox) 400 mg PO BID [facility] Last Admin: 05/23/17 13:26 Dose: 400 mg Rosuvastatin Calcium (Crestor) 10 mg PO HS [facility] Last Admin: 05/22/17 21:33 Dose: 10 mg Sodium Bicarbonate (Sodium Bicarbonate Tab) 650 mg PO BID [facility] Last Admin: 05/23/17 13:27 Dose: 650 mg - Labs Labs: 05/23/17 07:10 05/23/17 07:10
[2017-05-24 07:42] LABS: BASO % 0.1 % (0.0-2.0); EOS # 0.2 K/uL (0.0-0.7); EOS % 3.9 % (0.0-4.0); HEMOGLOBIN 11.5 g/dL (11.0-16.0); LYMPH # 1.3 K/uL (1.0-4.3); LYMPH % 26.2 % (20.0-40.0); MEAN CORPUSCULAR HEMOGLOBIN 31.2 pg (27.0-31.0); MEAN PLATELET VOLUME 8.8 fL (7.2-11.7); MONO # 0.4 K/uL (0.0-0.8); MONO % 8.5 % (0.0-10.0); NEUT % 61.3 % (50.0-75.0); RBC 3.68 Mil/uL (3.80-5.20); RED CELL DISTRIBUTION WIDTH 13.2 % (11.5-14.5); WHITE BLOOD COUNT 4.9 K/uL (4.8-10.8)
--- NOTE | 2017-05-24 07:52 | CP.PCM.CON ---
History of Present Illness - History of Present Illness History of Present Illness: I was asked to see patient by Dr Major. Patient is a 71 year old female with PMH HTn, CAD s/p PCI LAD, RCA, hypercholesterolemia and renal insufficiency who presents with syncope. The patient does not recall the events of her fall, but states it occurred at home. She was found to have renal failure. She denies chest pain, dyspnea. The patient has noted to previously be on Entresto which is held. Review of Systems - Review of Systems Systems not reviewed;Unavailable: Altered Mental Status Past Patient History - Past Medical History & Family History Past Medical History?: Yes - Past Social History Smoking Status: Never Smoked - CARDIAC Hx Hypertension: Yes - RENAL Hx Chronic Kidney Disease: Yes - ENDOCRINE/METABOLIC Hx Diabetes Mellitus Type 2: Yes - MUSCULOSKELETAL/RHEUMATOLOGICAL Hx Falls: Yes - PSYCHIATRIC Hx Substance Use: No - SURGICAL HISTORY Hx Surgeries: Yes Hx Coronary Stent: Yes (x2 2000) - ANESTHESIA Hx Anesthesia: Yes Hx Anesthesia Reactions: No Hx Malignant Hyperthermia: No Meds Allergies/Adverse Reactions: Allergies Allergy/AdvReac Type Severity Reaction Status Date / Time No Known Allergies Allergy Verified 04/09/16 15:10 - Medications Medications: Current Medications Aspirin (Aspirin Chewable) 81 mg PO DAILY [facility] Last Admin: 05/23/17 09:17 Dose: 81 mg Carvedilol (Coreg) 6.25 mg PO BID [facility] Last Admin: 05/23/17 18:18 Dose: 6.25 mg Clopidogrel Bisulfate (Plavix) 75 mg PO DAILY [facility] Last Admin: 05/23/17 09:17 Dose: 75 mg Dextrose (Dextrose 50% Inj) 0 ml IV STAT PRN; Protocol PRN Reason: Hypoglycemia Protocol Dextrose (Glutose 15) 0 gm PO ONCE PRN; Protocol PRN Reason: Hypoglycemia Protocol Enoxaparin Sodium (Lovenox) 30 mg SC DAILY [facility] Last Admin: 05/23/17 09:18 Dose: 30 mg Ergocalciferol (Drisdol 50,000 Intl Units Cap) 1 cap PO Q7D [facility] Last Admin: 05/22/17 10:02 Dose: 1 cap Furosemide (Lasix) 20 mg PO BID [facility] Last Admin: 05/23/17 18:17 Dose: 20 mg Glucagon (Glucagen Diagnostic Kit) 0 mg IM STAT PRN; Protocol PRN Reason: Hypoglycemia Protocol Hydralazine HCl (Apresoline) 25 mg PO BID [facility] Last Admin: 05/23/17 21:39 Dose: 25 mg Dextrose (Dextrose 5% In Water 1000 Ml) 1,000 mls @ 0 mls/hr IV .Q0M PRN; Protocol; Per Protocol PRN Reason: Hypoglycemia Protocol Isosorbide Dinitrate (Isordil) 20 mg PO BID [facility] Last Admin: 05/23/17 18:17 Dose: 20 mg Magnesium Oxide (Mag-Ox) 400 mg PO BID [facility] Last Admin: 05/23/17 18:17 Dose: 400 mg Rosuvastatin Calcium (Crestor) 10 mg PO HS [facility] Last Admin: 05/23/17 21:38 Dose: 10 mg Sodium Bicarbonate (Sodium Bicarbonate Tab) 650 mg PO BID [facility] Last Admin: 05/23/17 18:18 Dose: 650 mg Physical Exam - Constitutional Appears: Non-toxic - Head Exam Head Exam: NORMAL INSPECTION - Eye Exam Eye Exam: Normal appearance - ENT Exam ENT Exam: Mucous Membranes Moist - Neck Exam Neck exam: Positive for: Full Rom, Normal Inspection - Respiratory Exam Respiratory Exam: NORMAL BREATHING PATTERN - Cardiovascular Exam Cardiovascular Exam: REGULAR RHYTHM - GI/Abdominal Exam GI & Abdominal Exam: Normal Bowel Sounds - Rectal Exam Rectal Exam: Deferred - Extremities Exam Extremities exam: Negative for: pedal edema - Back Exam Back exam: NORMAL INSPECTION - Neurological Exam Neurological exam: Alert - Psychiatric Exam Psychiatric exam: Normal Affect - Skin Skin Exam: Normal Color Results - Vital Signs Recent Vital Signs: Last Vital Signs Temp 98.3 F 05/23/17 23:20 Pulse 81 05/24/17 03:54 Resp 20 05/23/17 23:20 BP 134/76 05/23/17 23:20 Pulse Ox 99 05/23/17 23:20 - Labs Result Diagrams: 05/23/17 07:10 05/23/17 07:10 Labs: Laboratory Results - last 24 hr 05/22/17 05/23/17 05/23/17 07:15 07:10 11:57 POC Glucose (mg/dL) 273 H Hemoglobin A1c 6.9 H PTH Intact Whole Molec 317 H 05/23/17 05/23/17 05/24/17 16:34 21:21 06:29 POC Glucose (mg/dL) 267 H 295 H 250 H Hemoglobin A1c PTH Intact Whole Molec - EKG Data EKG Interpreted by: Myself Assessment & Plan (1) HTN (hypertension) Assessment and Plan: I reviewed the echocardiogram. There is a segmental wall motion abnormality suggestive of CAD. However EF is only mildy reduced. Entresto is not indicated. Recommend incresing Coreg to 12.5 mg BID. Hold ARB/CHACE inhoibitor therapy given renal insufficiency. can titrate hydralazine. Status: Acute (2) CAD (coronary artery disease) Assessment and Plan: antiplatelet therapy given coronary stenting less than one year ago. Status: Acute
[2017-05-24 08:06] LABS: MEAN CELL VOLUME 91.7 fL (81.0-99.0)
[2017-05-24 08:27] LABS: ALB/GLOB RATIO 0.8 (1.0-2.1); CALCIUM 8.1 mg/dl (8.6-10.4); MAGNESIUM 1.4 mg/dL (1.6-2.3)
--- NOTE | 2017-05-24 08:40 | CP.PCM.PN ---
Subjective - Date & Time of Evaluation Date of Evaluation: 05/24/17 Time of Evaluation: 08:26 - Subjective Subjective: PGY-[address] Major's service: Patient seen and examined at bedside. Nursing reports no acute events overnight. Patient found resting in bed comfortably, and was awake and oriented x 3. She is tolerating diet, moving her bowels and voiding without difficulty. She states she is able to "think clearer, and find her words easier" than on admission. She admits generalized weakness, but feels it is improving after working with PT. She denies chest pain, palpitations, SOB, abdominal pain, N/V/D /C. Objective - Vital Signs/Intake and Output Vital Signs (last 24 hours): Temp Pulse Resp BP Pulse Ox 98.3 F 81 20 134/76 99 05/23/17 23:20 05/24/17 03:54 05/23/17 23:20 05/23/17 23:20 05/23/17 23:20 Intake and Output: 05/24/17 05/24/17 06:59 18:59 Intake Total 320 Balance 320 - Medications Medications: Current Medications Aspirin (Aspirin Chewable) 81 mg PO DAILY [facility] Last Admin: 05/23/17 09:17 Dose: 81 mg Carvedilol (Coreg) 6.25 mg PO BID [facility] Last Admin: 05/23/17 18:18 Dose: 6.25 mg Clopidogrel Bisulfate (Plavix) 75 mg PO DAILY [facility] Last Admin: 05/23/17 09:17 Dose: 75 mg Dextrose (Dextrose 50% Inj) 0 ml IV STAT PRN; Protocol PRN Reason: Hypoglycemia Protocol Dextrose (Glutose 15) 0 gm PO ONCE PRN; Protocol PRN Reason: Hypoglycemia Protocol Enoxaparin Sodium (Lovenox) 30 mg SC DAILY [facility] Last Admin: 05/23/17 09:18 Dose: 30 mg Ergocalciferol (Drisdol 50,000 Intl Units Cap) 1 cap PO Q7D [facility] Last Admin: 05/22/17 10:02 Dose: 1 cap Furosemide (Lasix) 20 mg PO BID [facility] Last Admin: 05/23/17 18:17 Dose: 20 mg Glucagon (Glucagen Diagnostic Kit) 0 mg IM STAT PRN; Protocol PRN Reason: Hypoglycemia Protocol Hydralazine HCl (Apresoline) 25 mg PO BID [facility] Last Admin: 05/23/17 21:39 Dose: 25 mg Dextrose (Dextrose 5% In Water 1000 Ml) 1,000 mls @ 0 mls/hr IV .Q0M PRN; Protocol; Per Protocol PRN Reason: Hypoglycemia Protocol Isosorbide Dinitrate (Isordil) 20 mg PO BID [facility] Last Admin: 05/23/17 18:17 Dose: 20 mg Magnesium Oxide (Mag-Ox) 400 mg PO BID [facility] Last Admin: 05/23/17 18:17 Dose: 400 mg Rosuvastatin Calcium (Crestor) 10 mg PO HS [facility] Last Admin: 05/23/17 21:38 Dose: 10 mg Sodium Bicarbonate (Sodium Bicarbonate Tab) 650 mg PO BID [facility] Last Admin: 05/23/17 18:18 Dose: 650 mg - Labs Labs: 05/24/17 07:18 05/23/17 07:10 - Constitutional Appears: Non-toxic, No Acute Distress - Head Exam Head Exam: ATRAUMATIC, NORMAL INSPECTION - Eye Exam Eye Exam: EOMI - ENT Exam ENT Exam: Mucous Membranes Moist - Respiratory Exam Respiratory Exam: Clear to Ausculation Bilateral, NORMAL BREATHING PATTERN - Cardiovascular Exam Cardiovascular Exam: REGULAR RHYTHM, +S1, +S2 - GI/Abdominal Exam GI & Abdominal Exam: Soft, Normal Bowel Sounds. absent: Tenderness - Extremities Exam Extremities Exam: Normal Inspection. absent: Pedal Edema - Back Exam Back Exam: absent: CVA tenderness (L), CVA tenderness (R) - Neurological Exam Neurological Exam: Alert, Awake, Oriented x3 - Psychiatric Exam Psychiatric exam: Normal Affect, Normal Mood - Skin Skin Exam: Dry, Normal Color, Warm Assessment and Plan - Assessment and Plan (Free Text) Plan: AMS/Syncopal episode Patient is awake and oriented today. Seems back to her baseline but will speak with her daughters. MRI - potential central pontine bilateral lysis. f/u MRI with contrast recommended, Per neurology is not pontine lysis, no hx of Sodium dysfunction (could not be done with contrast due to poor renal function) Neuro consult: Dr. Jenkins, help appreciated - Spoke to Dr. Jenkins as slurred speech, weakness, gaze palsy became worse throughout day on 05/21 - Pt well outside window for tPA - Echo (05/22/17): EF 40-45%, Significant regional wall motion abnormalities noted. Mild Aortic regurgitation. Carotid dopplers (05/22/17): Scan not suggestive of stenosis in left or right carotid arteries. - TSH 2.28 wnl Plavix 75mg PO daily Coreg increased to 12.5mg PO BID ASA 325mg PO ONCE - ASA 81mg PO Daily Pt found unresponsive at home, BG 28 - AAOx3 after D50 Last known time normal 1800 on 05/20/17 CT Head (05/21/17): Generalized atrophy. Moderate nonspecific white matter changes. Small fluid in the left maxillary sinus. Mucosal thickening of the ethmoid air cells. Small mucosal polyp/ retention cyst in the right sphenoid sinus (see full report) EKG: NSR, 68 bpm, No Acute T wave/ST changes CXR (05/21/17): NAD Lactic Acid 0.9 Vitamin D deficiency Vit D <12.8 42518 U PO given x 1 dose on 05/21, should take weekly for 4 months Vitamin B12 deficiency B12 - 371 1000mcg of B12 given 1m x 1 dose on 05/22 Patient to take supplements SL daily Type Two Diabetes Mellitus A1C: 6.9 Stop home glyburide Insulin sliding scale Hypoglycemia Protocol Accuchecks ACHS CHF (systolic) NO JVD, Pedal edema, Rales Echo (05/22/17): EF 40-45%, Significant regional wall motion abnormalities noted. Mild Aortic regurgitation. Cardio Consult, Dr Burk - Bimal not indicated CXR (05/21/2017): NAD Coreg increased to 12.5mg PO BID SOCORRO negative x 2 HTN Elevated this AM Hydralazine 25mg PO BID Isosorbide Dinitrate 20mg PO BID Coreg increased to 12.5mg PO BID Lasix 20mg PO BID CAD Stent placement: Mid LAD, Distal RCA (07/2016) Plavix 75mg PO Daily ASA 81mg PO Daily Coreg increased to 12.5mg PO BID Acute on chronic renal failure Cr 2.5 today, mild improvement Cr 3.0 on admission; up from previous admission in 2016 (1.9) Nephro consult: Dr. Enriquez, help appreciated: Dose meds/antibiotics for reduced GFR. Avoid fleets enema/magnesium based laxatives. Avoid nephrotoxins/NSAIDs/ iodinated contrast (unless needed emergently) Ua sodium 76 microalbumin >950 - needs CHACE/arb but can't give at this time due to poor renal function Urine total protein 956 Renal US - chronic renal parenchymal disease Microalbuminuria microalbumin >950 - needs CHACE/arb but can't give at this time due to poor renal function Urine total protein 956 Hypomagnesemia Mg 1.4, repleted Mag Ox 400mg PO BID Prophylaxis Lovenox 30mg SC Daily (renal dose) Protonix 40mg IV daily SCDs Disposition: Will likely DC tomorrow pending neurology clearance and echo/ carotid doppler reports All medical management per Dr. Major
[2017-05-24] MEDS ORDERED: Magnesium Sulfate 1 gm in D5W 1 GM/100 ML BAG IVPB ONE (09:26)
[2017-05-24] MEDS: Magnesium Oxide 400 mg Tab UD PO SCH ×2 (11:00→17:52)
[2017-05-24] MEDS: Enoxaparin 30 mg Syringe SC SCH (11:01)
--- NOTE | 2017-05-24 16:26 | CP.PCM.PN ---
Subjective - Date & Time of Evaluation Date of Evaluation: 05/24/17 Time of Evaluation: 16:25 - Subjective Subjective: Follow up Nephrology Consultation: Assessment: Stable Hypoglycemia, hyponatremia Acute Kidney Injury (N17.9) likely due to mild pre-renal state Diabetic chronic Kidney Disease (E11.22) Hypertensive Chronic Kidney Disease (I12.9) Chronic Kidney Disease (N18.4) Stage 4 with proteinuria (R80.9) likely due to DM Anemia (D64.9), Vit D def, HTN (I12.9) CHF Vit D def acidosis and hypomagnesemia Plan No acute need for renal replacement therapy at this time. Hypertension control with meds as ordered. Patient not on ACEI/ARB as on entresto which is also being held. low K diet Monitor Input/Output, daily weights and renal function with basic metabolic panel considering CHF/recent hospitalization for it, resume her lasix please obtain record from recent hospitalization about renal function supplement with weekly vit D supplement with mag and bicarb pt stable for d/c from renal perspective, when planned. f/up in renal office 1- 2 weeks post d/c Dose meds/antibiotics for reduced GFR. Avoid fleets enema/magnesium based laxatives. Avoid nephrotoxins/NSAIDs/ iodinated contrast (unless needed emergently) Glycemic control Further work up/management as per primary team Thanks for allowing me to participate in care of your patient. Will follow patient with you. Please call if any Qs. d/w team Dr Aime Enriquez Office: [phone] Chief Complaint; low sugar reason for consult: JAYME HPI: Pt is a 71 F with hx of diabetes Mellitus (>20 years) without known retinopathy, hypertension (20 years), hyperlipidemia, CKD 3 (cr 1.9 in 2016) CHF recently admitted to another hospital with CHF exacerbation and fluid overload d/c home 1 week ago, now on entresto presented with complaints of low sugar and AMS. now feels better and at usual health. she is not aware about kidney issues. daughter says they were informed that kidney function not okay. Denies OTC/herbal meds or NSAIDs No recent iodinated contrast exposure. No obvious episodes of low BP. ROS: Cardiovascular: No chest pain. Pulmonary: No shortness of breath Gastrointestinal: denies abdominal pain No nausea. No vomiting. Genitourinary: No pain while urinating. Denies blood in urine. All other negative Physical Examination: General Appearance: Comfortable, in no acute respiratory distress, co-operative . Vitals reviewed and noted as below Head; Atraumatic, normocephalic ENT: no ulcers no thrush. Tongue is midline. Oropharynx: no rash or ulcers. EYES: Pupils are equal, round and reactive to light accommodation. Eye muscles and extraocular movement intact. Sclera is anicteric. Neck; supple no lymphadenopathy, no thyromegaly or bruit Lungs: Normal respiratory rate/effort. Breath sounds bilateral equal and occasional basal crackle Heart: Normal rate. s1s2 normal. No rub or gallop. Extremities: no edema. No varicose veins Neurological: Patient is alert, awake and oriented to person, place and time. No focal deficit. Strength bilateral appropriate and equal Skin: Warm and dry. Normal turgor. No rash. Palpitation: Normal elasticity for age Abdomen: Abdomen is soft. Bowel sounds +. There is no abdominal tenderness, no guarding/rigidity no organomegaly Psych: limited insight and normal affect/mood MSK: no joint tenderness or swelling. Digits and nails normal, no deformity : kidney or bladder not palpable Labs/imaging reviewed. Past medical history, past surgical history, family history, social history, allergy reviewed and noted as below Family hx: no hx of CKD. Rest non-contributory ua 3+ protein echogenic kidneys on sonogram Objective - Vital Signs/Intake and Output Vital Signs (last 24 hours): Temp Pulse Resp BP Pulse Ox 98.3 F 78 20 153/81 H 100 05/24/17 08:29 05/24/17 08:29 05/24/17 08:29 05/24/17 11:00 05/24/17 08:29 Intake and Output: 05/24/17 05/24/17 06:59 18:59 Intake Total 320 Balance 320 - Medications Medications: Current Medications Aspirin (Aspirin Chewable) 81 mg PO DAILY [facility] Last Admin: 05/24/17 11:01 Dose: 81 mg Carvedilol (Coreg) 12.5 mg PO BID [facility] Last Admin: 05/24/17 11:00 Dose: 12.5 mg Clopidogrel Bisulfate (Plavix) 75 mg PO DAILY [facility] Last Admin: 05/24/17 11:01 Dose: 75 mg Dextrose (Dextrose 50% Inj) 0 ml IV STAT PRN; Protocol PRN Reason: Hypoglycemia Protocol Dextrose (Glutose 15) 0 gm PO ONCE PRN; Protocol PRN Reason: Hypoglycemia Protocol Enoxaparin Sodium (Lovenox) 30 mg SC DAILY [facility] Last Admin: 05/24/17 11:01 Dose: 30 mg Ergocalciferol (Drisdol 50,000 Intl Units Cap) 1 cap PO Q7D [facility] Last Admin: 05/22/17 10:02 Dose: 1 cap Furosemide (Lasix) 20 mg PO BID [facility] Last Admin: 05/24/17 11:00 Dose: 20 mg Glucagon (Glucagen Diagnostic Kit) 0 mg IM STAT PRN; Protocol PRN Reason: Hypoglycemia Protocol Hydralazine HCl (Apresoline) 25 mg PO BID [facility] Last Admin: 05/24/17 11:01 Dose: 25 mg Dextrose (Dextrose 5% In Water 1000 Ml) 1,000 mls @ 0 mls/hr IV .Q0M PRN; Protocol; Per Protocol PRN Reason: Hypoglycemia Protocol Insulin Human Regular (Novolin R) 0 unit SC ACHS [facility] PRN Reason: Protocol Isosorbide Dinitrate (Isordil) 20 mg PO BID [facility] Last Admin: 05/23/17 18:17 Dose: 20 mg Magnesium Oxide (Mag-Ox) 400 mg PO BID [facility] Last Admin: 05/24/17 11:00 Dose: 400 mg Rosuvastatin Calcium (Crestor) 10 mg PO HS [facility] Last Admin: 05/23/17 21:38 Dose: 10 mg Sodium Bicarbonate (Sodium Bicarbonate Tab) 650 mg PO BID [facility] Last Admin: 05/24/17 11:01 Dose: 650 mg - Labs Labs: 05/24/17 07:18 05/24/17 06:23
[2017-05-24] MEDS ORDERED: (Novolin R) Insulin Human Regular 100 units/ml vial SC SCH (16:30)
[2017-05-24 17:01] VITALS: TEMP 99.1; O2SAT 98
[2017-05-24 17:04] VITALS: PULSE 76
[2017-05-24 17:53] VITALS: BP 152/80
--- NOTE | 2017-06-10 10:09 | DS ---
HOSPITAL COURSE: Ms. Nascimento was admitted to the hospital with chief complaint of progressive weakness, fatigue and tiredness. The patient was found to have elevated BUN and creatinine. The patient was placed on bed rest and supportive care, IV fluids, CAT scan of the head with MRI of the head. The patient showed improvement and discharged to be followed up as outpatient. DIAGNOSES: Renal failure, hypertension, deconditioning. Taz Major MD
== END 2017-05-24 21:02 | DRG 682 ==
LOC: C.ER 09:11 → C.9E 14:27 → C.6T 16:39
PROVIDERS: ADMIT Internal Medicine Pulmonary Disease; ATTEND Internal Medicine Pulmonary Disease
DX: N17.9 Acute kidney failure, unspecified (principal); E11.641 Type 2 diabetes mellitus with hypoglycemia with coma; E87.2 Acidosis; I13.0 Hypertensive heart and chronic kidney disease with heart failure and stage 1 through stage 4 chronic kidney disease, or unspecified chronic kidney disease; I50.20 Unspecified systolic (congestive) heart failure; G40.89 Other seizures; E87.1 Hypo-osmolality and hyponatremia; E87.5 Hyperkalemia; E11.22 Type 2 diabetes mellitus with diabetic chronic kidney disease; Z79.4 Long term (current) use of insulin; I25.10 Atherosclerotic heart disease of native coronary artery without angina pectoris; Z95.5 Presence of coronary angioplasty implant and graft; E11.40 Type 2 diabetes mellitus with diabetic neuropathy, unspecified; R47.1 Dysarthria and anarthria; D64.9 Anemia, unspecified; E55.9 Vitamin D deficiency, unspecified; N18.3 Chronic kidney disease, stage 3 (moderate); R55 Syncope and collapse; R53.1 Weakness; E53.8 Deficiency of other specified B group vitamins